=== PATIENT | male | born 1955 | race Caucasian/White ===

== ENCOUNTER 2016-05-15 10:48 | Emergency (ER) | payer OTHER ==
[2016-05-15] MEDS ORDERED: oxyCODONE/APAP 10/325 TABLET ONE (12:59)
== END 2016-05-15 14:37 | disposition home or self-care (01) ==
LOC: ER 10:48
CPT/HCPCS: 36415; 80053; 85025; 85610

== ENCOUNTER 2016-05-21 23:07 | Emergency (ER) | payer OTHER ==
[2016-05-22] MEDS ORDERED: CEFTRIAXONE 1 GM VIAL ONE (01:25)
[2016-05-22] MEDS ORDERED: SODIUM CHLORIDE 0.9% 100 ML IV ONE (01:25)
== END 2016-05-22 02:34 | disposition home or self-care (01) ==
LOC: ER 23:07
DX: R31.9 Hematuria, unspecified (principal); D68.32 Hemorrhagic disorder due to extrinsic circulating anticoagulants
CPT/HCPCS: 36415; 80053; 81001; 83690; 85025; 85610; 85730; 87088; 96365